=== PATIENT | male | born 1935 | race Caucasian/White ===

== ENCOUNTER 2018-10-13 15:53 | Inpatient (IN) | payer MEDICARE, MEDICAID ==
[2018-10-13] MEDS: LACTATED RINGER'S 1,000 ML IV (16:39)
[2018-10-13] MEDS: DIPHTH/TET/ACEL PERTUSS (ADULT) 0.5 ML VIAL IM* (16:39)
[2018-10-13] MEDS: CEFAZOLIN 1 GM/50 ML (PMX) 50 ML IVPB (16:40)
[2018-10-13] MEDS: KETOROLAC 15 MG INJ IV (16:40)
[2018-10-13 16:41] LABS: ADD MAN DIFF? NO
[2018-10-13 16:46] LABS: WHITE BLOOD COUNT 15.3 10^3/ul (4.8-10.8)
[2018-10-13 16:46] LABS: BASOPHIL # 0.1 10^3/ul (0.0-0.1); BASOPHILS % 0.5 % (0.0-2.0); EOSINOPHILS # 0.1 10^3/ul (0.0-0.5); EOSINOPHILS % 0.7 % (0.0-7.0); HEMATOCRIT 41.2 % (42.0-52.0); HEMOGLOBIN 13.7 g/dl (14.0-18.0); LYMPHOCYTES # 1.5 10^3/ul (0.8-2.9); LYMPHOCYTES % 9.8 % (15.0-51.0); MEAN CORPUSCULAR HEMOGLOBIN 30.4 pg (29.0-33.0); MEAN CORPUSCULAR HGB CONC 33.3 g/dl (32.0-37.0); MEAN CORPUSCULAR VOLUME 91.4 fl (82.0-101.0); MEAN PLATELET VOLUME 8.7 fl (7.4-10.4); MONOCYTE # 1.2 10^3/ul (0.3-0.9); MONOCYTES % 7.5 % (0.0-11.0); NEUTROPHIL # 12.2 10^3/ul (1.6-7.5); NEUTROPHILS % 79.7 % (39.0-77.0); PLATELET COUNT 300 10^3/UL (140-415); RED BLOOD COUNT 4.51 10^6/ul (4.70-6.10); RED CELL DISTRIBUTION WIDTH 14.1 % (11.5-14.5)
[2018-10-13 17:00] LABS: ALANINE AMINOTRANSFERASE 23 IU/L (13-69); ALBUMIN/GLOBULIN RATIO 1.25; ALKALINE PHOSPHATASE 79 IU/L (42-121); ANION GAP 9 (5-13); ASPARTATE AMINO TRANSFERASE 27 IU/L (15-46); BILIRUBIN,INDIRECT 0.7 mg/dl (0-1.1); BILIRUBIN,TOTAL 0.7 mg/dl (0.2-1.3); BLOOD UREA NITROGEN 19 mg/dl (7-20); CARBON DIOXIDE 25 mmol/L (21-31); CHLORIDE 104 mmol/L (97-110); CREATININE 0.96 mg/dl (0.61-1.24); GLUCOSE 122 mg/dl (70-220); LIPASE 44 U/L (23-300); POTASSIUM 4.4 mmol/L (3.5-5.1); SODIUM 138 mmol/L (135-144); TOTAL PROTEIN 7.2 g/dl (6.1-8.1)
[2018-10-13 17:04] LABS: INR 1.08; PROTIME 14.1 Sec (11.9-14.9); PT RATIO 1.1
[2018-10-13 17:05] LABS: PARTIAL THROMBOPLASTIN TIME 31.5 Sec (23.0-35.0)
[2018-10-13] MEDS: OXYCODONE/ACETAMINOPHEN (5/325) TAB PO ×2 (17:25→20:29)
[2018-10-13] MEDS ORDERED: ACETAMINOPHEN 325 MG TAB PO (20:30)
[2018-10-13] MEDS ORDERED: NACL 0.9% 3 ML SYG IV (20:30)
[2018-10-13] MEDS ORDERED: ONDANSETRON 4 MG INJ (21:00)
[2018-10-13] MEDS: ONDANSETRON 4 MG INJ IV (21:03)
[2018-10-13] MEDS: SOD CHLORIDE 0.9% 1,000 ML IV (23:04)
[2018-10-13 23:06] LABS: ADD MAN DIFF? NO
[2018-10-13 23:11] LABS: ABNORMAL IP MESSAGE 1; BASOPHILS % 0.1 % (0.0-2.0); EOSINOPHILS # 0.1 10^3/ul (0.0-0.5); EOSINOPHILS % 0.3 % (0.0-7.0); HEMATOCRIT 38.3 % (42.0-52.0); HEMOGLOBIN 12.6 g/dl (14.0-18.0); LYMPHOCYTES # 0.4 10^3/ul (0.8-2.9); LYMPHOCYTES % 2.5 % (15.0-51.0); MEAN CORPUSCULAR HEMOGLOBIN 30.1 pg (29.0-33.0); MEAN CORPUSCULAR HGB CONC 32.9 g/dl (32.0-37.0); MEAN CORPUSCULAR VOLUME 91.6 fl (82.0-101.0); MEAN PLATELET VOLUME 9.7 fl (7.4-10.4); MONOCYTE # 1.4 10^3/ul (0.3-0.9); MONOCYTES % 8.3 % (0.0-11.0); NEUTROPHIL # 14.8 10^3/ul (1.6-7.5); NEUTROPHILS % 88.1 % (39.0-77.0); PLATELET COUNT 285 10^3/UL (140-415); POSITIVE DIFF @See below; RED BLOOD COUNT 4.18 10^6/ul (4.70-6.10)
[2018-10-13 23:11] LABS: WHITE BLOOD COUNT 16.8 10^3/ul (4.8-10.8)
[2018-10-14] MEDS: SOD CHLORIDE 0.9% 500 ML IV (00:10)
[2018-10-14] MEDS: morphine 2 MG INJ IV ×3 (00:13→15:12)
[2018-10-14 01:06] LABS: ANISOCYTOSIS 1+ (0-0); BAND NEUTROPHILS #M 0.8 10^3/ul (0.0-0.6); BAND NEUTROPHILS % (M) 5 % (0-4); LYMPHOCYTES #M 0.8 10^3/ul (0.8-2.9); LYMPHOCYTES % (M) 5 % (15-51); MONOCYTE #M 1.6 10^3/ul (0.3-0.9); MONOCYTES % (M) 10 % (0-11); PLATELET ESTIMATE NORMAL; POIKILOCYTOSIS 3+ (0-0); SEG NEUT #M 13.6 10^3/ul (1.6-7.5); SEGMENTED NEUTROPHILS (M) % 80 % (39-77); SMUDGE%M 4 % (0-0)
[2018-10-14] MEDS: AL HYDROX/MG HYDROX/SIMETH 30 ML CUP PO (04:20)
[2018-10-14 05:41] LABS: ADD MAN DIFF? NO
[2018-10-14 05:42] LABS: BASOPHILS % 0.1 % (0.0-2.0); HEMATOCRIT 34.8 % (42.0-52.0); HEMOGLOBIN 11.6 g/dl (14.0-18.0); LYMPHOCYTES # 0.7 10^3/ul (0.8-2.9); LYMPHOCYTES % 5.3 % (15.0-51.0); MEAN CORPUSCULAR HEMOGLOBIN 30.5 pg (29.0-33.0); MEAN CORPUSCULAR HGB CONC 33.3 g/dl (32.0-37.0); MEAN CORPUSCULAR VOLUME 91.6 fl (82.0-101.0); MEAN PLATELET VOLUME 9.3 fl (7.4-10.4); MONOCYTE # 1.2 10^3/ul (0.3-0.9); MONOCYTES % 8.8 % (0.0-11.0); NEUTROPHIL # 11.7 10^3/ul (1.6-7.5); NEUTROPHILS % 85.4 % (39.0-77.0); PLATELET COUNT 269 10^3/UL (140-415)
[2018-10-14 05:42] LABS: WHITE BLOOD COUNT 13.7 10^3/ul (4.8-10.8)
[2018-10-14 06:11] LABS: ALANINE AMINOTRANSFERASE 26 IU/L (13-69); ALBUMIN 3.3 g/dl (3.3-4.9); ALKALINE PHOSPHATASE 57 IU/L (42-121); ANION GAP 9 (5-13); ASPARTATE AMINO TRANSFERASE 31 IU/L (15-46); BILIRUBIN,INDIRECT 0.7 mg/dl (0-1.1); BILIRUBIN,TOTAL 0.7 mg/dl (0.2-1.3); BLOOD UREA NITROGEN 24 mg/dl (7-20); CALCIUM 8.4 mg/dl (8.4-10.2); CARBON DIOXIDE 24 mmol/L (21-31); CHLORIDE 105 mmol/L (97-110); CHOL/HDL RATIO 2.9 RATIO; CHOLESTEROL 134 mg/dl (100-200); CREATININE 0.89 mg/dl (0.61-1.24); GLUCOSE 160 mg/dl (70-220); HDL CHOLESTEROL 46 mg/dl (31-75); LDL CHOLESTEROL,CALCULATED 82 mg/dl; MAGNESIUM 1.9 mg/dl (1.7-2.5); POTASSIUM 4.7 mmol/L (3.5-5.1); SODIUM 138 mmol/L (135-144); TOTAL PROTEIN 6.3 g/dl (6.1-8.1); TRIGLYCERIDES 31 mg/dl (0-149)
[2018-10-14 06:28] LABS: HEMOGLOBIN A1C 5.7 % (0-5.9)
[2018-10-14] MEDS: HYDROCODONE/APAP (5/325) TAB PO (09:39)
[2018-10-14] MEDS: SOD CHLORIDE 0.9% 1,000 ML IV (13:20)
[2018-10-14] MEDS: ONDANSETRON 4 MG INJ IV (17:16)
[2018-10-14] MEDS: morphine 4 MG/ML VIAL IV (21:32)
[2018-10-15] MEDS: SOD CHLORIDE 0.9% 1,000 ML IV ×2 (04:10→18:36)
[2018-10-15 05:48] LABS: CHOLESTEROL 125 mg/dl (100-200)
[2018-10-15 05:48] LABS: CHOL/HDL RATIO 2.8 RATIO; HDL CHOLESTEROL 44 mg/dl (31-75); LDL CHOLESTEROL,CALCULATED 71 mg/dl; TRIGLYCERIDES 51 mg/dl (0-149)
[2018-10-15] MEDS ORDERED: GELATIN SIZE 100 SPONGE (06:54)
[2018-10-15] MEDS ORDERED: THROMBIN 5000 UNIT VIAL (06:54)
[2018-10-15 08:43] LABS: TYPE AND SCREEN 1
[2018-10-15] MEDS ORDERED: ROCURONIUM 50 MG INJ ×2 (08:46→11:15)
[2018-10-15] MEDS ORDERED: CEFAZOLIN 1 GM INJ (08:46)
[2018-10-15] MEDS ORDERED: FAMOTIDINE 20 MG INJ (08:46)
[2018-10-15] MEDS ORDERED: ONDANSETRON 4 MG INJ (08:46)
[2018-10-15] MEDS ORDERED: DEXAMETHASONE 4 MG/ML 5 ML INJ (08:46)
[2018-10-15] MEDS ORDERED: SUCCINYLCHOLINE CHLORIDE 100 MG/5 ML SYG IV (08:46)
[2018-10-15] MEDS ORDERED: PROPOFOL 20 ML (08:46)
[2018-10-15] MEDS ORDERED: LIDOCAINE 2% (SDV) 5 ML INJ (08:46)
[2018-10-15] MEDS ORDERED: FENTAnyl 50 MCG/ML VIAL IV ×2 (09:30→13:30)
[2018-10-15] MEDS ORDERED: MEPERIDINE 25 MG INJ IV ×2 (09:30→12:30)
[2018-10-15] MEDS ORDERED: ONDANSETRON 4 MG INJ IV ×2 (09:30→12:30)
[2018-10-15] MEDS ORDERED: HYDROmorphONE 0.5 MG/0.5 ML SYG IV ×2 (09:30)
[2018-10-15] MEDS: THROMBIN 5000 UNIT VIAL ZFS (09:53)
[2018-10-15] MEDS: SURGIFOAM POWDER 1 GM KIT TOP (09:53)
[2018-10-15] MEDS ORDERED: PHENYLephrine (100 MCG/ML) 10ML SYG (10:39)
[2018-10-15] MEDS ORDERED: SUGAMMADEX SODIUM 200 MG/2 ML VIAL IV ×2 (11:56→11:58)
[2018-10-15] MEDS ORDERED: BACITRACIN/POLYMYXIN 28.35 GM OINT TOP (12:00)
[2018-10-15] MEDS ORDERED: HYDROmorphONE 1 MG/5 ML IV SYRINGE IV ×2 (12:30)
[2018-10-15] MEDS ORDERED: PROCHLORPERAZINE 10 MG INJ IV (12:30)
[2018-10-15] MEDS ORDERED: LABETALOL HCL 20MG INJ IV (13:00)
[2018-10-15] MEDS: CEFAZOLIN 1 GM/50 ML (PMX) 50 ML IVPB ×2 (14:49→21:13)
[2018-10-15] MEDS: HYDROmorphONE 1 MG/5 ML IV SYRINGE IV (14:52)
[2018-10-15] MEDS: FENTAnyl 50 MCG/ML VIAL IV (14:53)
[2018-10-15] MEDS: morphine 2 MG INJ IV (19:02)
[2018-10-15] MEDS: HYDROCODONE/APAP (5/325) TAB PO (20:37)
[2018-10-16] MEDS: SOD CHLORIDE 0.9% 1,000 ML IV ×3 (02:50→17:18)
[2018-10-16] MEDS: HYDROCODONE/APAP (5/325) TAB PO (05:03)
[2018-10-16] MEDS: CEFAZOLIN 1 GM/50 ML (PMX) 50 ML IVPB ×3 (06:45→21:26)
[2018-10-16 10:15] LABS: ADD MAN DIFF? NO
[2018-10-16 10:17] LABS: WHITE BLOOD COUNT 12.2 10^3/ul (4.8-10.8)
[2018-10-16 10:17] LABS: BASOPHILS % 0.2 % (0.0-2.0); EOSINOPHILS % 0.2 % (0.0-7.0); HEMATOCRIT 24.1 % (42.0-52.0); HEMOGLOBIN 7.8 g/dl (14.0-18.0); LYMPHOCYTES % 8.5 % (15.0-51.0); MEAN CORPUSCULAR HEMOGLOBIN 29.7 pg (29.0-33.0); MEAN CORPUSCULAR HGB CONC 32.4 g/dl (32.0-37.0); MEAN CORPUSCULAR VOLUME 91.6 fl (82.0-101.0); MEAN PLATELET VOLUME 9.2 fl (7.4-10.4); MONOCYTE # 1.5 10^3/ul (0.3-0.9); NEUTROPHIL # 9.6 10^3/ul (1.6-7.5); NEUTROPHILS % 78.7 % (39.0-77.0); PLATELET COUNT 251 10^3/UL (140-415); RED BLOOD COUNT 2.63 10^6/ul (4.70-6.10); RED CELL DISTRIBUTION WIDTH 14.5 % (11.5-14.5)
[2018-10-16 10:38] LABS: ANION GAP 3 (5-13); BLOOD UREA NITROGEN 16 mg/dl (7-20); CALCIUM 7.7 mg/dl (8.4-10.2); CARBON DIOXIDE 28 mmol/L (21-31); CHLORIDE 104 mmol/L (97-110); CREATININE 0.76 mg/dl (0.61-1.24); GLUCOSE 131 mg/dl (70-220); MAGNESIUM 1.9 mg/dl (1.7-2.5); PHOSPHORUS 2.4 mg/dl (2.5-4.9); POTASSIUM 4.3 mmol/L (3.5-5.1); SODIUM 135 mmol/L (135-144)
[2018-10-16 13:51] LABS: IMMEDIATE SPIN CROSSMATCH 1 1
[2018-10-16] MEDS: SOD CHLORIDE 0.9% 250 ML IV* (14:04)
[2018-10-16] MEDS: CYCLOBENZAPRINE 10 MG TAB PO ×2 (14:07→21:26)
[2018-10-17] MEDS: CEFAZOLIN 1 GM/50 ML (PMX) 50 ML IVPB ×3 (05:58→21:34)
[2018-10-17] MEDS: CYCLOBENZAPRINE 10 MG TAB PO (08:09)
[2018-10-17] MEDS: ONDANSETRON 4 MG INJ IV (09:21)
[2018-10-17 10:40] LABS: ADD MAN DIFF? NO
[2018-10-17 10:41] LABS: BASOPHILS % 0.3 % (0.0-2.0); EOSINOPHILS # 0.2 10^3/ul (0.0-0.5); EOSINOPHILS % 1.7 % (0.0-7.0); HEMATOCRIT 28.4 % (42.0-52.0); HEMOGLOBIN 9.4 g/dl (14.0-18.0); LYMPHOCYTES # 0.8 10^3/ul (0.8-2.9); LYMPHOCYTES % 7.5 % (15.0-51.0); MEAN CORPUSCULAR HEMOGLOBIN 29.5 pg (29.0-33.0); MEAN CORPUSCULAR HGB CONC 33.1 g/dl (32.0-37.0); MONOCYTE # 1.3 10^3/ul (0.3-0.9); MONOCYTES % 12.4 % (0.0-11.0); NEUTROPHILS % 77.5 % (39.0-77.0); PLATELET COUNT 267 10^3/UL (140-415); RED BLOOD COUNT 3.19 10^6/ul (4.70-6.10); RED CELL DISTRIBUTION WIDTH 14.8 % (11.5-14.5)
[2018-10-17 10:41] LABS: WHITE BLOOD COUNT 10.3 10^3/ul (4.8-10.8)
[2018-10-17] MEDS: HYDROCODONE/APAP (5/325) TAB PO (11:22)
[2018-10-17] MEDS: POTASSIUM PHOSPHATE 30 MM in SOD CHLORIDE 0.9% 250 ML IVPB (14:27)
[2018-10-18] MEDS: HYDROCODONE/APAP (5/325) TAB PO (00:37)
[2018-10-18] MEDS: CEFAZOLIN 1 GM/50 ML (PMX) 50 ML IVPB (06:00)
[2018-10-18] MEDS: BISACODYL (EC) 5 MG TAB PO (06:06)
[2018-10-18 08:53] LABS: ADD MAN DIFF? NO
[2018-10-18 08:56] LABS: BASOPHIL # 0.1 10^3/ul (0.0-0.1); BASOPHILS % 0.5 % (0.0-2.0); EOSINOPHILS # 0.3 10^3/ul (0.0-0.5); EOSINOPHILS % 3.3 % (0.0-7.0); HEMATOCRIT 31.2 % (42.0-52.0); HEMOGLOBIN 10.1 g/dl (14.0-18.0); LYMPHOCYTES % 9.5 % (15.0-51.0); MEAN CORPUSCULAR HEMOGLOBIN 29.6 pg (29.0-33.0); MEAN CORPUSCULAR HGB CONC 32.4 g/dl (32.0-37.0); MEAN CORPUSCULAR VOLUME 91.5 fl (82.0-101.0); MEAN PLATELET VOLUME 9.1 fl (7.4-10.4); MONOCYTE # 1.5 10^3/ul (0.3-0.9); MONOCYTES % 14.8 % (0.0-11.0); NEUTROPHIL # 7.1 10^3/ul (1.6-7.5); NEUTROPHILS % 71.3 % (39.0-77.0); PLATELET COUNT 302 10^3/UL (140-415); RED BLOOD COUNT 3.41 10^6/ul (4.70-6.10); RED CELL DISTRIBUTION WIDTH 14.6 % (11.5-14.5)
[2018-10-18 09:17] LABS: ALANINE AMINOTRANSFERASE 16 IU/L (13-69); ALKALINE PHOSPHATASE 51 IU/L (42-121); ANION GAP 6 (5-13); ASPARTATE AMINO TRANSFERASE 22 IU/L (15-46); BILIRUBIN,INDIRECT 0.9 mg/dl (0-1.1); BILIRUBIN,TOTAL 0.9 mg/dl (0.2-1.3); BLOOD UREA NITROGEN 13 mg/dl (7-20); CARBON DIOXIDE 28 mmol/L (21-31); CHLORIDE 100 mmol/L (97-110); CREATININE 0.76 mg/dl (0.61-1.24); GLUCOSE 115 mg/dl (70-220); MAGNESIUM 2.1 mg/dl (1.7-2.5); PHOSPHORUS 3.2 mg/dl (2.5-4.9); POTASSIUM 4.5 mmol/L (3.5-5.1); SODIUM 134 mmol/L (135-144)
[2018-10-18] MEDS: METOPROLOL (XL) 50 MG TAB PO (12:46)
[2018-10-19] MEDS: traZODone 50 MG TAB PO ×2 (03:13→21:02)
[2018-10-19] MEDS: HYDROCODONE/APAP (5/325) TAB PO (06:45)
[2018-10-19] MEDS: morphine 2 MG INJ IV (07:58)
[2018-10-19] MEDS: METOPROLOL (XL) 50 MG TAB PO (10:05)
[2018-10-19] MEDS: BISACODYL (EC) 5 MG TAB PO (17:44)
[2018-10-19] MEDS ORDERED: NITROGLYCERIN (SL) 0.4 MG TAB SL (19:30)
[2018-10-19] MEDS: DOCUSATE SODIUM 100 MG CAP PO (21:02)
[2018-10-20] MEDS: BISACODYL (EC) 5 MG TAB PO (06:50)
[2018-10-20] MEDS: HYDROCODONE/APAP (5/325) TAB PO (07:09)
[2018-10-20] MEDS: METOPROLOL (XL) 50 MG TAB PO (08:33)
[2018-10-20] MEDS: BISACODYL 10 MG SUPP PR (10:32)
== END 2018-10-20 15:40 | DRG 460 ==
LOC: REC 10-15 08:27 → MS1 10-16 15:35 → E/R 15:53 → ICU 10-15 17:54 → MS1 19:01
PROC: 0RGA0K1 Fusion of Thoracolumbar Vertebral Joint with Nonautologous Tissue Substitute, Posterior Approach, Posterior Column, Open Approach (ICD-10-PCS; principal; 2018-10-15 07:30)
PROC: 0SG10K1 Fusion of 2 or more Lumbar Vertebral Joints with Nonautologous Tissue Substitute, Posterior Approach, Posterior Column, Open Approach (ICD-10-PCS; 2018-10-15 07:30)
PROC: 30233R1 Transfusion of Nonautologous Platelets into Peripheral Vein, Percutaneous Approach (ICD-10-PCS; 2018-10-15 07:48)
PROC: 30233N1 Transfusion of Nonautologous Red Blood Cells into Peripheral Vein, Percutaneous Approach (ICD-10-PCS; 2018-10-15 07:48)
DX: S32.029A Unspecified fracture of second lumbar vertebra, initial encounter for closed fracture (principal); I25.10 Atherosclerotic heart disease of native coronary artery without angina pectoris; I25.2 Old myocardial infarction; Z95.5 Presence of coronary angioplasty implant and graft; M48.10 Ankylosing hyperostosis [Forestier], site unspecified; M45.5 Ankylosing spondylitis of thoracolumbar region; E78.5 Hyperlipidemia, unspecified; S20.91XA Abrasion of unspecified parts of thorax, initial encounter; M19.91 Primary osteoarthritis, unspecified site; M53.2X5 Spinal instabilities, thoracolumbar region; V89.9XXA Person injured in unspecified vehicle accident, initial encounter; Y93.E6 Activity, residential relocation; Y92.410 Unspecified street and highway as the place of occurrence of the external cause; S30.0XXA Contusion of lower back and pelvis, initial encounter; R07.89 Other chest pain
CPT/HCPCS: 36415; 36430; 70450; 71045; 71250; 72100; 72131; 72148; 72170; 73030-RT; 74176; 80048; 80053; 80061; 83036; 83690; 83735; 84100; 84443; 85025; 85610; 85730; 86644; 86850; 86900; 86901; 86920; 86945; 87081; 90471; 90715; 93005; 93306; 96374; 96375; 97116; 97162; 97530; 99285-25

== ENCOUNTER 2018-10-20 16:00 | Inpatient (IN) | payer MEDICARE ==
[2018-10-20] MEDS ORDERED: LACTULOSE 30ML CUP PO (16:30)
[2018-10-20] MEDS ORDERED: BISACODYL 10 MG SUPP PR (16:30)
[2018-10-20] MEDS ORDERED: MAGNESIUM HYDROXIDE 30ML CUP PO (16:30)
[2018-10-20] MEDS ORDERED: PENDING SANTYL ORDER FOR WOUND CARE XX (16:30)
[2018-10-20] MEDS ORDERED: ALUMINUM HYDROXIDE 30 ML CUP PO (17:00)
[2018-10-20] MEDS ORDERED: ACETAMINOPHEN 325 MG TAB PO (17:00)
[2018-10-20] MEDS ORDERED: NITROGLYCERIN (SL) 0.4 MG TAB SL (17:00)
[2018-10-20] MEDS ORDERED: AL HYDROX/MG HYDROX/SIMETH 30 ML CUP PO (17:30)
[2018-10-20 20:13] LABS: ADD UMIC YES; UR ASCORBIC ACID NEGATIVE (NEGATIVE); UR BILIRUBIN (Dip) NEGATIVE (NEGATIVE); UR BLOOD (Dip) 1+ mg/dL (NEGATIVE); UR CLARITY CLEAR (CLEAR); UR COLOR YELLOW (YELLOW); UR GLUCOSE (Dip) NEGATIVE (NEGATIVE); UR KETONES (Dip) TRACE mg/dL (NEGATIVE); UR LEUKOCYTE ESTERASE (Dip) NEGATIVE Leu/ul (NEGATIVE); UR NITRITE (Dip) NEGATIVE (NEGATIVE); UR RBC 11 /HPF (0-5); UR SPECIFIC GRAVITY (Dip) 1.018 (1.003-1.030); UR TOTAL PROTEIN (Dip) NEGATIVE (NEGATIVE); UR UROBILINOGEN (Dip) 1+ mg/dL (NEGATIVE); UR WBC 5 /HPF (0-5)
[2018-10-20] MEDS ORDERED: DOCUSATE SODIUM 100 MG CAP PO (21:00)
[2018-10-20] MEDS: SENNA TAB PO (21:38)
[2018-10-20] MEDS: traZODone 50 MG TAB PO (21:38)
[2018-10-20] MEDS: DOCUSATE SODIUM 100 MG CAP PO (21:38)
[2018-10-20] MEDS: CLOPIDOGREL 75 MG TAB PO (22:16)
[2018-10-21] MEDS: HYDROCODONE/APAP (5/325) TAB PO (02:30)
[2018-10-21] MEDS: morphine 2 MG INJ IV (03:53)
[2018-10-21 06:22] LABS: ADD MAN DIFF? NO
[2018-10-21 06:25] LABS: BASOPHILS % 0.3 % (0.0-2.0); EOSINOPHILS # 0.3 10^3/ul (0.0-0.5); EOSINOPHILS % 2.9 % (0.0-7.0); HEMATOCRIT 28.3 % (42.0-52.0); HEMOGLOBIN 9.2 g/dl (14.0-18.0); LYMPHOCYTES # 1.1 10^3/ul (0.8-2.9); LYMPHOCYTES % 11.5 % (15.0-51.0); MEAN CORPUSCULAR HEMOGLOBIN 29.1 pg (29.0-33.0); MEAN CORPUSCULAR HGB CONC 32.5 g/dl (32.0-37.0); MEAN CORPUSCULAR VOLUME 89.6 fl (82.0-101.0); MEAN PLATELET VOLUME 8.8 fl (7.4-10.4); MONOCYTE # 1.5 10^3/ul (0.3-0.9); MONOCYTES % 15.2 % (0.0-11.0); NEUTROPHIL # 6.7 10^3/ul (1.6-7.5); NEUTROPHILS % 69.3 % (39.0-77.0); PLATELET COUNT 395 10^3/UL (140-415); RED BLOOD COUNT 3.16 10^6/ul (4.70-6.10); RED CELL DISTRIBUTION WIDTH 14.3 % (11.5-14.5)
[2018-10-21 06:25] LABS: WHITE BLOOD COUNT 9.7 10^3/ul (4.8-10.8)
[2018-10-21 07:05] LABS: ALANINE AMINOTRANSFERASE 22 IU/L (13-69); ALBUMIN 2.6 g/dl (3.3-4.9); ALBUMIN/GLOBULIN RATIO 0.89; ALKALINE PHOSPHATASE 54 IU/L (42-121); ANION GAP 9 (5-13); ASPARTATE AMINO TRANSFERASE 24 IU/L (15-46); BLOOD UREA NITROGEN 21 mg/dl (7-20); CALCIUM 7.8 mg/dl (8.4-10.2); CARBON DIOXIDE 30 mmol/L (21-31); CHLORIDE 96 mmol/L (97-110); CREATININE 0.64 mg/dl (0.61-1.24); GLUCOSE 146 mg/dl (70-220); SODIUM 135 mmol/L (135-144); TOTAL PROTEIN 5.5 g/dl (6.1-8.1)
[2018-10-21 07:28] LABS: BILIRUBIN,INDIRECT 0.8 mg/dl (0-1.1); BILIRUBIN,TOTAL 0.8 mg/dl (0.2-1.3)
[2018-10-21] MEDS: METOPROLOL (XL) 50 MG TAB PO (08:52)
[2018-10-21] MEDS: DOCUSATE SODIUM 100 MG CAP PO ×2 (08:52→20:55)
[2018-10-21] MEDS: CLOPIDOGREL 75 MG TAB PO (09:18)
[2018-10-21] MEDS: ONDANSETRON 4 MG INJ IV (09:19)
[2018-10-21] MEDS: SILVER SULFADIAZINE 1% 25 GM CR TOP (09:19)
[2018-10-21] MEDS: MULTIVITAMINS THERAPEUTIC TAB PO (13:06)
[2018-10-21] MEDS: ASCORBIC ACID 500 MG TAB PO (13:06)
[2018-10-21] MEDS: HYDROCORTISONE 0.5% 28.35 GM CR TOP (17:17)
[2018-10-21] MEDS: traZODone 50 MG TAB PO (20:55)
[2018-10-21] MEDS: SENNA TAB PO (20:55)
[2018-10-22] MEDS: MULTIVITAMINS THERAPEUTIC TAB PO (08:52)
[2018-10-22] MEDS: DOCUSATE SODIUM 100 MG CAP PO ×2 (08:52→21:17)
[2018-10-22] MEDS: METOPROLOL (XL) 50 MG TAB PO (08:52)
[2018-10-22] MEDS: CLOPIDOGREL 75 MG TAB PO (08:52)
[2018-10-22] MEDS: ASCORBIC ACID 500 MG TAB PO (08:52)
[2018-10-22] MEDS: BISACODYL (EC) 5 MG TAB PO (08:53)
[2018-10-22] MEDS: morphine 2 MG INJ IV (08:53)
[2018-10-22] MEDS: SILVER SULFADIAZINE 1% 25 GM CR TOP (08:54)
[2018-10-22] MEDS ORDERED: morphine 2 MG INJ IV (21:00)
[2018-10-22] MEDS: SENNA TAB PO (21:17)
[2018-10-22] MEDS: traZODone 50 MG TAB PO (21:18)
[2018-10-23] MEDS: BENAZEPRIL 10 MG TAB PO (09:03)
[2018-10-23] MEDS: MULTIVITAMINS THERAPEUTIC TAB PO (09:03)
[2018-10-23] MEDS: CLOPIDOGREL 75 MG TAB PO (09:03)
[2018-10-23] MEDS: DOCUSATE SODIUM 100 MG CAP PO ×2 (09:03→20:15)
[2018-10-23] MEDS: METOPROLOL (XL) 50 MG TAB PO (09:04)
[2018-10-23] MEDS: ASCORBIC ACID 500 MG TAB PO (09:04)
[2018-10-23] MEDS: SILVER SULFADIAZINE 1% 25 GM CR TOP (09:05)
[2018-10-23] MEDS: traZODone 50 MG TAB PO (20:15)
[2018-10-23] MEDS: SENNA TAB PO (20:15)
[2018-10-24] MEDS: DOCUSATE SODIUM 100 MG CAP PO ×2 (09:00→21:36)
[2018-10-24] MEDS: BENAZEPRIL 10 MG TAB PO (11:27)
[2018-10-24] MEDS: ASCORBIC ACID 500 MG TAB PO (11:27)
[2018-10-24] MEDS: METOPROLOL (XL) 50 MG TAB PO (11:27)
[2018-10-24] MEDS: MULTIVITAMINS THERAPEUTIC TAB PO (11:27)
[2018-10-24] MEDS: CLOPIDOGREL 75 MG TAB PO (11:32)
[2018-10-24] MEDS: SILVER SULFADIAZINE 1% 25 GM CR TOP (11:33)
[2018-10-24] MEDS: HYDROCODONE/APAP (5/325) TAB PO (11:42)
[2018-10-24] MEDS: SENNA TAB PO (21:36)
[2018-10-24] MEDS: traZODone 50 MG TAB PO (21:36)
[2018-10-25] MEDS: CLOPIDOGREL 75 MG TAB PO (09:23)
[2018-10-25] MEDS: DOCUSATE SODIUM 100 MG CAP PO ×2 (09:23→20:36)
[2018-10-25] MEDS: BENAZEPRIL 10 MG TAB PO (09:23)
[2018-10-25] MEDS: ASCORBIC ACID 500 MG TAB PO (09:24)
[2018-10-25] MEDS: METOPROLOL (XL) 50 MG TAB PO (09:24)
[2018-10-25] MEDS: MULTIVITAMINS THERAPEUTIC TAB PO (09:24)
[2018-10-25] MEDS: SILVER SULFADIAZINE 1% 25 GM CR TOP (09:28)
[2018-10-25] MEDS: HYDROCORTISONE 0.5% 28.35 GM CR TOP (16:30)
[2018-10-25] MEDS: SENNA TAB PO (20:37)
[2018-10-25] MEDS: traZODone 50 MG TAB PO (20:37)
[2018-10-26] MEDS: ZOLPIDEM 5 MG TAB PO (00:16)
[2018-10-26] MEDS: MULTIVITAMINS THERAPEUTIC TAB PO (08:55)
[2018-10-26] MEDS: ASCORBIC ACID 500 MG TAB PO (08:55)
[2018-10-26] MEDS: BENAZEPRIL 10 MG TAB PO (08:56)
[2018-10-26] MEDS: METOPROLOL (XL) 50 MG TAB PO (08:56)
[2018-10-26] MEDS: CLOPIDOGREL 75 MG TAB PO (08:56)
[2018-10-26] MEDS: DOCUSATE SODIUM 100 MG CAP PO ×2 (08:56→21:00)
[2018-10-26] MEDS: SILVER SULFADIAZINE 1% 25 GM CR TOP (08:59)
[2018-10-26] MEDS: SENNA TAB PO (21:00)
[2018-10-26] MEDS: traZODone 50 MG TAB PO (21:00)
[2018-10-27] MEDS: DOCUSATE SODIUM 100 MG CAP PO ×2 (09:00→21:00)
[2018-10-27] MEDS: MULTIVITAMINS THERAPEUTIC TAB PO (09:41)
[2018-10-27] MEDS: ASCORBIC ACID 500 MG TAB PO (09:41)
[2018-10-27] MEDS: CLOPIDOGREL 75 MG TAB PO (09:42)
[2018-10-27] MEDS: METOPROLOL (XL) 50 MG TAB PO (09:42)
[2018-10-27] MEDS: SILVER SULFADIAZINE 1% 25 GM CR TOP (09:42)
[2018-10-27] MEDS: BENAZEPRIL 10 MG TAB PO (09:42)
[2018-10-27] MEDS: ARTIFICIAL TEARS 15 ML OPH BOTH EYES (11:21)
[2018-10-27] MEDS: SENNA TAB PO (21:00)
[2018-10-27] MEDS: traZODone 50 MG TAB PO (21:00)
[2018-10-28] MEDS: BENAZEPRIL 10 MG TAB PO (08:42)
[2018-10-28] MEDS: ASCORBIC ACID 500 MG TAB PO (08:42)
[2018-10-28] MEDS: MULTIVITAMINS THERAPEUTIC TAB PO (08:42)
[2018-10-28] MEDS: CLOPIDOGREL 75 MG TAB PO (08:42)
[2018-10-28] MEDS: DOCUSATE SODIUM 100 MG CAP PO ×2 (08:43→21:31)
[2018-10-28] MEDS: METOPROLOL (XL) 50 MG TAB PO (08:43)
[2018-10-28 12:33] LABS: ADD UMIC NO; UR ASCORBIC ACID 40 mg/dL (NEGATIVE); UR BILIRUBIN (Dip) NEGATIVE (NEGATIVE); UR BLOOD (Dip) NEGATIVE (NEGATIVE); UR CLARITY CLEAR (CLEAR); UR COLOR YELLOW (YELLOW); UR GLUCOSE (Dip) NEGATIVE (NEGATIVE); UR KETONES (Dip) TRACE mg/dL (NEGATIVE); UR LEUKOCYTE ESTERASE (Dip) NEGATIVE Leu/ul (NEGATIVE); UR NITRITE (Dip) NEGATIVE (NEGATIVE); UR SPECIFIC GRAVITY (Dip) 1.011 (1.003-1.030); UR TOTAL PROTEIN (Dip) NEGATIVE (NEGATIVE); UR UROBILINOGEN (Dip) 2+ mg/dL (NEGATIVE)
[2018-10-28] MEDS: SENNA TAB PO (21:31)
[2018-10-28] MEDS: traZODone 50 MG TAB PO (21:31)
[2018-10-29] MEDS: SILVER SULFADIAZINE 1% 25 GM CR TOP ×2 (01:26→09:31)
[2018-10-29] MEDS: BENAZEPRIL 10 MG TAB PO (09:00)
[2018-10-29] MEDS: DOCUSATE SODIUM 100 MG CAP PO ×2 (09:29→20:08)
[2018-10-29] MEDS: METOPROLOL (XL) 50 MG TAB PO (09:29)
[2018-10-29] MEDS: CLOPIDOGREL 75 MG TAB PO (09:29)
[2018-10-29] MEDS: ASCORBIC ACID 500 MG TAB PO (09:30)
[2018-10-29] MEDS: MULTIVITAMINS THERAPEUTIC TAB PO (09:30)
[2018-10-29] MEDS: SENNA TAB PO (20:08)
[2018-10-29] MEDS: traZODone 50 MG TAB PO (21:00)
[2018-10-30] MEDS: DOCUSATE SODIUM 100 MG CAP PO ×2 (08:31→21:00)
[2018-10-30] MEDS: MULTIVITAMINS THERAPEUTIC TAB PO (08:31)
[2018-10-30] MEDS: BENAZEPRIL 10 MG TAB PO (08:32)
[2018-10-30] MEDS: ASCORBIC ACID 500 MG TAB PO (08:32)
[2018-10-30] MEDS: CLOPIDOGREL 75 MG TAB PO (08:32)
[2018-10-30] MEDS: METOPROLOL (XL) 50 MG TAB PO (08:32)
[2018-10-30] MEDS: SILVER SULFADIAZINE 1% 25 GM CR TOP (08:35)
[2018-10-30] MEDS: SENNA TAB PO (21:00)
[2018-10-30] MEDS: traZODone 50 MG TAB PO (21:00)
[2018-10-31] MEDS: DOCUSATE SODIUM 100 MG CAP PO (09:53)
[2018-10-31] MEDS: MULTIVITAMINS THERAPEUTIC TAB PO (09:53)
[2018-10-31] MEDS: ASCORBIC ACID 500 MG TAB PO (09:54)
[2018-10-31] MEDS: CLOPIDOGREL 75 MG TAB PO (09:54)
[2018-10-31] MEDS: BENAZEPRIL 10 MG TAB PO (09:54)
[2018-10-31] MEDS: METOPROLOL (XL) 50 MG TAB PO (09:55)
[2018-10-31] MEDS: SILVER SULFADIAZINE 1% 25 GM CR TOP (09:56)
== END 2018-10-31 11:30 | disposition home health service (06) | DRG 559 ==
LOC: VRC 16:00
DX: S22.088D Other fracture of T11-T12 vertebra, subsequent encounter for fracture with routine healing (principal); G92 Toxic encephalopathy; M45.9 Ankylosing spondylitis of unspecified sites in spine; I25.10 Atherosclerotic heart disease of native coronary artery without angina pectoris; E78.5 Hyperlipidemia, unspecified; M19.011 Primary osteoarthritis, right shoulder; D64.89 Other specified anemias; I10 Essential (primary) hypertension; I25.2 Old myocardial infarction; Z95.5 Presence of coronary angioplasty implant and graft; R07.9 Chest pain, unspecified; S32.028D Other fracture of second lumbar vertebra, subsequent encounter for fracture with routine healing; F06.31 Mood disorder due to known physiological condition with depressive features
CPT/HCPCS: 72100; 80053; 81001; 81003; 85025; 87081; 87086; 97110; 97112; 97116; 97163; 97166; 97530; 97535